=== PATIENT | female | born 1945 | race Caucasian/White ===

== ENCOUNTER 2020-03-01 09:02 | Observation (INO) ==
--- NOTE | 2019-12-23 15:32 | PAT Medication Instructions ---
Medication Instructions Date of Service December 23, 2019 Home Medications alendronate [Fosamax] 70 mg PO WK anastrozole 1 mg PO QAM aspirin 81 mg PO QAM biotin 5 mg PO QAM calcium carbonate-vitamin D3 [Calcium + D] 1 tab PO BID celecoxib [Celebrex] 100 mg PO BID cholecalciferol (vitamin D3) [Vitamin D3] 50 mcg PO QAM escitalopram oxalate 20 mg PO HS esomeprazole magnesium [Nexium] 20 mg PO QAM omega 0-yhq-cnn-fish oil [Fish Oil] 1 cap PO QAM simvastatin 40 mg PO HS Continue as directed alendronate [Fosamax] 70 mg PO WK ASK your surgeon for instructions Celecoxib [Celebrex] 100 mg PO BID ASK your prescriber and surgeon anastrozole 1 mg PO QAM STOP taking 2 weeks before surgery (or as soon as possible if surgery is within 2 weeks) omega 5-ufj-uhn-fish oil [Fish Oil] 1 cap PO QAM DO NOT take the morning of surgery biotin 5 mg PO QAM calcium carbonate-vitamin D3 [Calcium + D] 1 tab PO BID cholecalciferol (vitamin D3) [Vitamin D3] 50 mcg PO QAM Take morning of surgery With a small sip of water, OTHERWISE NOTHING TO EAT OR DRINK AFTER MIDNIGHT: aspirin 81 mg PO QAM esomeprazole magnesium [Nexium] 20 mg PO QAM Take evening before surgery calcium carbonate-vitamin D3 [Calcium + D] 1 tab PO BID escitalopram oxalate 20 mg PO HS simvastatin 40 mg PO HS Other Notes If you have any questions please call us at [phone] or [phone] or [phone] or [phone]
--- NOTE | 2019-12-24 09:45 | History & Physical Report ---
Date of Service December 24, 2019 date of surgery: 01/20/20 procedure: Left Total Knee Arthroplasty Assessment & Plan (1) Arthritis of knee, left: Further care discussed with Ebonie, at this point in time has failed conservative measures including previous knee scope, Visco injection, PO NSAIDs and Tylenol without relief, she would like to proceed with a left total knee replacement. Plan on discharge will be home with home health physical therapy. DVT prophalaxis with TEDs, SCDs and will also place on Lovenox x 2 weeks postop. Patient will have follow up appointment in our office two weeks post op for staple/suture removal and re-evaluation. Patient otherwise has no other question s or concerns. History of Present Illness Chief Complaint: left knee pain Primary Care Provider: Jordyn Cao Ebonie is a 74 year old female who complains of left knee pain, presents for pre-op evaluation prior to a left total knee replacement by dr Bennett at [facility]. she complains of pain, decreased range of motion, and stiffness in the left knee. she states that the symptoms have been chronic and non-traumatic. Currently the patient states that the symptoms are moderate-severe. The pain is described as aching, sharp and throbbing. The symptoms occur continuously. The symptoms are aggravated by ascending stairs, daily activities, first steps while awake walking. Prior NSAIDs include Ibuprofen and Aleve, prior pain medications include Tylenol. she has been treated with previous visco injections in the past without much relief. She underwent Left knee arthroscopic partial medial meniscectomy, partial lateral meniscectomy chondroplasty, medial femoral condyle chondroplasty, lateral femoral condyle chondroplasty patellofemoral joint in May without any improvement. Allergies Allergy/AdvReac Type Severity Reaction Status Date / Time aspirin AdvReac Mild DUODENAL Verified 12/18/19 11:40 ULCER Home Medications Home Medications Medication Instructions Recorded Confirmed Type alendronate [Fosamax] 70 mg PO WK 12/18/19 12/18/19 History anastrozole 1 mg PO QAM 12/18/19 12/18/19 History aspirin 81 mg PO QAM 12/18/19 12/18/19 History biotin 5 mg PO QAM 12/18/19 12/18/19 History calcium carbonate-vitamin D3 1 tab PO BID 12/18/19 12/18/19 History [Calcium + D] celecoxib [Celebrex] 100 mg PO BID 12/18/19 12/18/19 History cholecalciferol (vitamin D3) 50 mcg PO QAM 12/18/19 12/18/19 History [Vitamin D3] escitalopram oxalate 20 mg PO HS 12/18/19 12/18/19 History esomeprazole magnesium [Nexium] 20 mg PO QAM 12/18/19 12/18/19 History omega 7-amz-qsc-fish oil [Fish Oil] 1 cap PO QAM 12/18/19 12/18/19 History simvastatin 40 mg PO HS 12/18/19 12/18/19 History Past Med/Surg History Medical History Depression GERD (gastroesophageal reflux disease) Hiatal hernia Hx of breast cancer RIGHT BREAST, HAD LUMPECTOMY AND RADIATION 3 YEARS AGO Hx of duodenal ulcer Hyperlipidemia Osteoarthritis Sleep apnea CPAP Surgical History History of arthroscopy of left shoulder History of left cataract surgery PLANNED 01/04/2020 History of lumpectomy of right breast Hx laparoscopic cholecystectomy Hx of arthroscopy of left knee Hx of arthroscopy of right knee Hx of section X 2 Hx of colonoscopy Hx of right cataract extraction Hx of tonsillectomy Hx of tubal ligation Social History Smoking Status: Never smoker Second Hand Exposure: No; Do You Dip or Chew Tobacco: No; Tobacco Cessation Education Requested by Patient: No Hx Alcohol Use: Yes Hx Substance Use: No Preferred Language: Sinhala Communication Ability: Effective Soft Shoe Dancer Required: No Beliefs That Will Affect Care: None Current Living Situation: Spouse Other Information That Helps Us Care for You: No Feels Safe at Home: Yes Safety Concerns: Feels Safe At This Time Review of Systems Review of Systems: All systems reviewed & are unremarkable except as noted in HPI & below Constitutional: no fever, no chills and no sweats Respiratory: no cough and no dyspnea Cardiovascular: no chest pain, no dyspnea and no orthopnea Gastrointestinal: no abdominal pain, no nausea and no vomiting Musculoskeletal: as per Subjective / HPI Physical Exam Physical Exam: Ht: 5ft 6in Wt: 81.65kg BP: 114/60 Constitutional: WD/WN, vitals as above no acute distress Respiratory: normal respiratory effort, lungs clear to auscultation no respiratory distress, no labored breathing and does not use accessory muscles Cardiovascular: RRR, no murmur, no edema Gastrointestinal (Abdomen): normal bowel sounds, soft, nontender, no hepatosplenomegaly Musculoskeletal: Knee: + knee abnormal to inspection (LEFT KNEE- ), + effusion (+1 effusion), + surgical incision (well healed portals), + limited ROM of knee (ROM 0/3/110), + knee ROM with crepitation, + joint line tenderness (medial joint line) and + Kerry's sign positive; no deformity, no skin erythema, no ecchymosis, no valgus laxity, no varus laxity, anterior drawer test negative, Sanjana's sign negative and pivot shift test negative Results & Data Results & Data ([facility]) Diagnostic Findings Left Knee X-ray from November 2019 confirms degenerative changes to the left knee, Tricompartmentally, there is joint space narrowing, osteophyte formation and subchondral sclerosis. no acute bony pathology noted.
--- NOTE | 2019-12-25 13:14 | Anesthesiology Consultation ---
Date of Service December 25, 2019 Assessment & Plan (1) Encounter for pre-operative examination: - Per assessment on 12/24: Travel screen- Lives in [facility]. No known COVID-19 positive contacts or current COVID-19 related symptoms. Surgeon arranging preop COVID testing (01/13; [facility]). Awaiting results. - Right cataracts extraction scheduled for 01/04/2020 - ASA instructions per surgeon/prescriber - RUE limb restriction s/p lumpectomy Chart Review Chart Review: Acceptable Risk for Surgery (pending surgeon-ordered PCP clearance) and Patient seen in Pre Admission Testing Teaching & Discussion Pre-Anesthesia Teaching/Discussion Notes: Instructed NPO after midnight before surgery,except medications with 15 cc of water. Medication instructions provided according to the PAT guidelines. History Surgery Operation Date: 01/20/20 08:20 Proposed Procedures p Left Total Knee Arthroplasty - Rudy Bennett DO Height/Weight Height: 5 ft 6 in Weight: 80 kg Allergies Allergy/AdvReac Type Severity Reaction Status Date / Time aspirin AdvReac Mild duodenal Verified 12/25/19 14:07 ulcer (see comments) Medications Home Medications Medication Instructions Recorded Confirmed Last Taken alendronate [Fosamax] 70 mg PO WK 12/18/19 12/18/19 Unknown anastrozole 1 mg PO QAM 12/18/19 12/18/19 Unknown aspirin 81 mg PO QAM 12/18/19 12/18/19 Unknown biotin 5 mg PO QAM 12/18/19 12/18/19 Unknown calcium carbonate-vitamin D3 1 tab PO BID 12/18/19 12/18/19 Unknown [Calcium + D] celecoxib [Celebrex] 100 mg PO BID 12/18/19 12/18/19 Unknown cholecalciferol (vitamin D3) 50 mcg PO QAM 12/18/19 12/18/19 Unknown [Vitamin D3] escitalopram oxalate 20 mg PO HS 12/18/19 12/18/19 Unknown esomeprazole magnesium [Nexium] 20 mg PO QAM 12/18/19 12/18/19 Unknown omega 0-sro-jlr-fish oil [Fish Oil] 1 cap PO QAM 12/18/19 12/18/19 Unknown simvastatin 40 mg PO HS 12/18/19 12/18/19 Unknown Past Medical History Medical History (Updated 12/25/19 @ 13:18 by Roz Hillman) Depression GERD (gastroesophageal reflux disease) Hiatal hernia Hx of breast cancer right s/p lumpectomy/radiation approximately 2017 Hx of duodenal ulcer Hyperlipidemia Osteoarthritis Sleep apnea CPAP Exercise / Class Metabolic Activity II 4-5 Yardwork/Stairs/Walk up hill Past Surgical History Surgical History (Updated 12/25/19 @ 13:18 by Roz Hillman) History of arthroscopy of left shoulder History of lumpectomy of right breast Hx laparoscopic cholecystectomy Hx of arthroscopy of left knee Hx of arthroscopy of right knee Hx of section X 2 Hx of colonoscopy Hx of right cataract extraction Hx of tonsillectomy Hx of tubal ligation Social History Smoking Status: Never smoker Do You Dip or Chew Tobacco: No Hx Alcohol Use: Yes alcohol intake frequency: holidays/special occasions only Hx Substance Use: No substance use type: does not use Review of Systems Patient denies chest pain, shortness of breath, dyspnea on exertion, joint pain, reflux, cough, wheezing, palpitations. Physical Exam Vital Signs VITALS BP 117/70 P 62 TEMP 97.9 SP02 95%RA RESP 16 PHYSICAL Full neck and c-spine range of motion. Full TMJ range of motion. TMD 3 finger breaths Mallampati Score 3 Dentition: intact, +crowns (several all over) Lungs: clear throughout to auscultation Cardiac: regular rate and rhythm, no murmurs noted Spine: normal Carotid arteries: negative bruit Extremities: no edema Testing Laboratory Results 12/25/19 14:15 12/25/19 14:15 PT 10.8 Seconds (9.0-12.0) 12/25/19 14:15 INR 1.0 (0.9-1.1) 12/25/19 14:15 APTT 26.8 Seconds (21.0-31.0) 12/25/19 14:15 Hemoglobin A1c 5.8 % (4.5-5.6) H 12/25/19 14:15 Urine Color Yellow 12/25/19 14:15 Urine Appearance Clear (Clear) 12/25/19 14:15 Urine pH 5.5 (4.5-7.5) 12/25/19 14:15 Ur Specific [place] 1.008 (1.000-1.030) 12/25/19 14:15 Urine Protein Negative (Negative) 12/25/19 14:15 Urine Glucose (UA) Negative (Negative) 12/25/19 14:15 Urine Ketones Negative (Negative) 12/25/19 14:15 Urine Nitrite Negative (Negative) 12/25/19 14:15 Ur Leukocyte Esterase Trace (Negative) H 12/25/19 14:15 Urine WBC (Auto) 1-5 /hpf (0-5) 12/25/19 14:15 Urine RBC (Auto) 0-4 /hpf (0-4) 12/25/19 14:15 U Hyaline Cast (Auto) 0 /lpf (0-5) 12/25/19 14:15 U Epithel Cells (Auto) 0-5 /lpf (0-5) 12/25/19 14:15 Urine Bacteria (Auto) Negative (Negative) 12/25/19 14:15 Blood Type A Positive 12/25/19 14:15 Antibody Screen NEGATIVE 12/25/19 14:15 Electrocardiogram Date: 12/25/19 SB at 56bpm. Chest X-Ray Date: 12/25/19 FINDINGS: PA and lateral chest radiographs are obtained. No prior studies are available for comparison at the time of dictation. The heart is top normal for projection noting atherosclerotic calcification of the thoracic aorta. The med iastinal contour is within normal limits. The lungs and pleural spaces are clear. There is no pneumothorax. The skeletal structures are osteopenic. The bony thorax appears intact. Degenerative change is noted in the thoracic spine. IMPRESSION: No active disease in the chest.
--- NOTE | 2019-12-25 17:54 | Electrocardiogram Report ---
Test Reason : Blood Pressure : / mmHG Vent. Rate : 056 BPM Atrial Rate : 056 BPM P-R Int : 166 ms QRS Dur : 076 ms QT Int : 436 ms P-R-T Axes : 069 024 041 degrees QTc Int : 420 ms Sinus bradycardia Otherwise normal ECG No previous ECGs available Confirmed by Guevara Hu ([id number]) on 12/25/2019 5:53:50 PM Referred By: Rudy Bennett Confirmed By:Korey Hu
--- NOTE | 2020-02-03 12:25 | History & Physical Report ---
Date of Service February 03, 2020 date of surgery: 03/01/20 procedure: Left Total Knee Arthroplasty Assessment & Plan (1) Arthritis of knee, left: Further care discussed with Ebonie, at this point in time has failed conservative measures including previous knee scope, Visco injection, PO NSAIDs and Tylenol without relief, she would like to proceed with a left total knee replacement. Plan on discharge will be home with home health physical therapy. DVT prophalaxis with TEDs, SCDs and will also place on Lovenox x 2 weeks postop. Patient will have follow up appointment in our office two weeks post op for staple/suture removal and re-evaluation. Patient otherwise has no other questions or concerns. History of Present Illness Chief Complaint: left knee pain Primary Care Provider: Jordyn Cao Ebonie is a 74 year old female who complains of left knee pain, presents for pre-op evaluation prior to a left total knee replacement by dr Bennett at [facility]. she complains of pain, decreased range of motion, and stiffness in the left knee. she states that the symptoms have been chronic and non-traumatic. Currently the patient states that the symptoms are moderate-severe. The pain is described as aching, sharp and throbbing. The symptoms occur continuously. The symptoms are aggravated by ascending stairs, daily activities, first steps while awake walking. Prior NSAIDs include Ibuprofen and Aleve, prior pain medications include Tylenol. she has been treated with previous visco injections in the past without much relief. She underwent Left knee arthroscopic partial medial meniscectomy, partial lateral meniscectomy chondroplasty, medial femoral condyle chondroplasty, lateral femoral condyle chondroplasty patellofemoral joint in May without any improvement. Allergies Allergy/AdvReac Type Severity Reaction Status Date / Time aspirin AdvReac Mild duodenal Verified 12/25/19 14:07 ulcer (see comments) Home Medications Home Medications Medication Instructions Recorded Confirmed Type alendronate [Fosamax] 70 mg PO WK 12/18/19 12/18/19 History anastrozole 1 mg PO QAM 12/18/19 12/18/19 History aspirin 81 mg PO QAM 12/18/19 12/18/19 History biotin 5 mg PO QAM 12/18/19 12/18/19 History calcium carbonate-vitamin D3 1 tab PO BID 12/18/19 12/18/19 History [Calcium + D] celecoxib [Celebrex] 100 mg PO BID 12/18/19 12/18/19 History cholecalciferol (vitamin D3) 50 mcg PO QAM 12/18/19 12/18/19 History [Vitamin D3] escitalopram oxalate 20 mg PO HS 12/18/19 12/18/19 History esomeprazole magnesium [Nexium] 20 mg PO QAM 12/18/19 12/18/19 History omega 1-cvw-yre-fish oil [Fish Oil] 1 cap PO QAM 12/18/19 12/18/19 History simvastatin 40 mg PO HS 12/18/19 12/18/19 History Past Med/Surg History Medical History Depression GERD (gastroesophageal reflux disease) Hiatal hernia Hx of breast cancer right s/p lumpectomy/radiation approximately 2017 Hx of duodenal ulcer Hyperlipidemia Osteoarthritis Sleep apnea CPAP Surgical History History of arthroscopy of left shoulder History of lumpectomy of right breast Hx laparoscopic cholecystectomy Hx of arthroscopy of left knee Hx of arthroscopy of right knee Hx of section X 2 Hx of colonoscopy Hx of right cataract extraction Hx of tonsillectomy Hx of tubal ligation Social History Smoking Status: Never smoker Second Hand Exposure: No; Hx Alcohol Use: Yes Hx Substance Use: No Preferred Language: Albanian Communication Ability: Effective Order To Delivery Supervisor Required: No Beliefs That Will Affect Care: None Current Living Situation: Spouse Feels Safe at Home: Yes Assistive Devices: Glasses and Hearing Aid - Bilateral Review of Systems Constitutional: as per Subjective / HPI; no fever and no chills Respiratory: no cough and no dyspnea Cardiovascular: no chest pain and no dyspnea Gastrointestinal: no abdominal pain, no nausea and no vomiting Musculoskeletal: as per Subjective / HPI Physical Exam Physical Exam: Ht: 5ft 6in Wt: 81.65kg BP: 114/60 Constitutional: WD/WN, vitals as above no acute distress Respiratory: normal respiratory effort, lungs clear to auscultation no respiratory distress, no labored breathing and does not use accessory muscles Cardiovascular: RRR, no murmur, no edema Gastrointestinal (Abdomen): normal bowel sounds, soft, nontender, no hepatosplenomegaly Musculoskeletal: Knee: + knee abnormal to inspection (LEFT KNEE- ), + effusion (+1 effusion), + surgical incision (well healed portals), + limited ROM of knee (ROM 0/3/110), + knee ROM with crepitation, + joint line tenderness (medial joint line) and + Kerry's sign positive; no deformity, no skin erythema, no ecchymosis, no valgus laxity, no varus laxity, anterior drawer test negative, Sanjana's sign negative and pivot shift test negative Results & Data Results & Data ([facility]) Laboratory Results Laboratory Results WBC Cancelled 12/25/19 14:15 RBC Cancelled 12/25/19 14:15 Hgb Cancelled 12/25/19 14:15 Hct Cancelled 12/25/19 14:15 MCV Cancelled 12/25/19 14:15 MCH Cancelled 12/25/19 14:15 MCHC Cancelled 12/25/19 14:15 RDW Std Deviation Cancelled 12/25/19 14:15 RDW Coeff of Tee Cancelled 12/25/19 14:15 Plt Count Cancelled 12/25/19 14:15 MPV Cancelled 12/25/19 14:15 Immature Gran % (Auto) Cancelled 12/25/19 14:15 Neut % (Auto) Cancelled 12/25/19 14:15 Lymph % (Auto) Cancelled 12/25/19 14:15 Williams % (Auto) Cancelled 12/25/19 14:15 Eos % (Auto) Cancelled 12/25/19 14:15 Baso % (Auto) Cancelled 12/25/19 14:15 Neut # (Auto) Cancelled 12/25/19 14:15 Lymph # (Auto) Cancelled 12/25/19 14:15 Williams # (Auto) Cancelled 12/25/19 14:15 Eos # (Auto) Cancelled 12/25/19 14:15 Baso # (Auto) Cancelled 12/25/19 14:15 Immature Gran # (Auto) Cancelled 12/25/19 14:15 Absolute Nucleated RBC Cancelled 12/25/19 14:15 Nucleated RBC % (auto) Cancelled 12/25/19 14:15 Neutrophils % (Manual) Cancelled 12/25/19 14:15 Band Neutrophils % Cancelled 12/25/19 14:15 Lymphocytes % (Manual) Cancelled 12/25/19 14:15 Prolymphocyte % Cancelled 12/25/19 14:15 Reactive Lymphs % (Man) Cancelled 12/25/19 14:15 Monocytes % (Manual) Cancelled 12/25/19 14:15 Eosinophils % (Manual) Cancelled 12/25/19 14:15 Basophils % (Manual) Cancelled 12/25/19 14:15 Metamyelocytes % (Man) Cancelled 12/25/19 14:15 Myelocytes % (Man) Cancelled 12/25/19 14:15 Promyelocytes % (Man) Cancelled 12/25/19 14:15 Blast Cells % (Manual) Cancelled 12/25/19 14:15 Plasma Cell % (Manual) Cancelled 12/25/19 14:15 Other Cells % Cancelled 12/25/19 14:15 Nucleated RBC % Cancelled 12/25/19 14:15 Neutrophils # (Manual) Cancelled 12/25/19 14:15 Band Neutrophils # Cancelled 12/25/19 14:15 Total Absolute Neuts Cancelled 12/25/19 14:15 Lymphocytes # (Manual) Cancelled 12/25/19 14:15 Prolymphocyte # Cancelled 12/25/19 14:15 Reactive Lymphs # Cancelled 12/25/19 14:15 Total Abs Lymphocytes Cancelled 12/25/19 14:15 Monocytes # (Manual) Cancelled 12/25/19 14:15 Eosinophils # (Manual) Cancelled 12/25/19 14:15 Basophils # (Manual) Cancelled 12/25/19 14:15 Metamyelocytes # (Man) Cancelled 12/25/19 14:15 Myelocytes # (Manual) Cancelled 12/25/19 14:15 Promyelocytes # (Man) Cancelled 12/25/19 14:15 Blast Cells # (Man) Cancelled 12/25/19 14:15 Plasma Cell # (Manual) Cancelled 12/25/19 14:15 Other Cells # Cancelled 12/25/19 14:15 Nucleated RBCs # (Man) Cancelled 12/25/19 14:15 Hypersegmented Neuts Cancelled 12/25/19 14:15 Hyposegmented Neuts Cancelled 12/25/19 14:15 Hypogranular Neuts Cancelled 12/25/19 14:15 Large Granular Lymphs Cancelled 12/25/19 14:15 # Lrg Granular Lymphs Cancelled 12/25/19 14:15 Hairy Cells Cancelled 12/25/19 14:15 Smudge Cells Cancelled 12/25/19 14:15 Toxic Granulation Cancelled 12/25/19 14:15 Toxic Vacuolation Cancelled 12/25/19 14:15 Dohle Bodies Cancelled 12/25/19 14:15 Rafael Rods Cancelled 12/25/19 14:15 Platelet Estimate Cancelled 12/25/19 14:15 Hypogranular Platelets Cancelled 12/25/19 14:15 Clumped Platelets Cancelled 12/25/19 14:15 Giant Platelets Cancelled 12/25/19 14:15 Platelet Satelliting Cancelled 12/25/19 14:15 RBC Morphology Cancelled 12/25/19 14:15 Polychromasia Cancelled 12/25/19 14:15 Hypochromasia Cancelled 12/25/19 14:15 Poikilocytosis Cancelled 12/25/19 14:15 Basophilic Stippling Cancelled 12/25/19 14:15 Anisocytosis Cancelled 12/25/19 14:15 Microcytosis Cancelled 12/25/19 14:15 Macrocytosis Cancelled 12/25/19 14:15 Spherocytes Cancelled 12/25/19 14:15 Pappenheimer Bodies Cancelled 12/25/19 14:15 Sickle Cells Cancelled 12/25/19 14:15 Target Cells Cancelled 12/25/19 14:15 Tear Drop Cells Cancelled 12/25/19 14:15 Ovalocytes Cancelled 12/25/19 14:15 Stomatocytes Cancelled 12/25/19 14:15 Deleon-Lyle Bodies Cancelled 12/25/19 14:15 Echinocytes Cancelled 12/25/19 14:15 Acanthocytes (Spur) Cancelled 12/25/19 14:15 Rouleaux Cancelled 12/25/19 14:15 RBC Agglutinates Cancelled 12/25/19 14:15 Schistocytes Cancelled 12/25/19 14:15 RBC Morph Comment Cancelled 12/25/19 14:15 Sezary Cell Cancelled 12/25/19 14:15 PT Cancelled 12/25/19 14:15 INR Cancelled 12/25/19 14:15 APTT Cancelled 12/25/19 14:15 PTT Ratio Cancelled 12/25/19 14:15 Sodium Cancelled 12/25/19 14:15 Potassium Cancelled 12/25/19 14:15 Chloride Cancelled 12/25/19 14:15 Carbon Dioxide Cancelled 12/25/19 14:15 Anion Gap Cancelled 12/25/19 14:15 BUN Cancelled 12/25/19 14:15 Creatinine Cancelled 12/25/19 14:15 Est Cr Clr Drug Dosing Cancelled 12/25/19 14:15 Est GFR ( Amer) Cancelled 12/25/19 14:15 Est GFR (Non-Af Amer) Cancelled 12/25/19 14:15 BUN/Creatinine Ratio Cancelled 12/25/19 14:15 Glucose Cancelled 12/25/19 14:15 Estimat Average Glucose Cancelled 12/25/19 14:15 Hemoglobin A1c Cancelled 12/25/19 14:15 Calcium Cancelled 12/25/19 14:15 Albumin Cancelled 12/25/19 14:15 Urine Color Cancelled 12/25/19 14:15 Urine Appearance Cancelled 12/25/19 14:15 Urine pH Cancelled 12/25/19 14:15 Ur Specific [place] Cancelled 12/25/19 14:15 Urine Protein Cancelled 12/25/19 14:15 Urine Glucose (UA) Cancelled 12/25/19 14:15 Urine Ketones Cancelled 12/25/19 14:15 Urine Blood Cancelled 12/25/19 14:15 Urine Nitrite Cancelled 12/25/19 14:15 Urine Bilirubin Cancelled 12/25/19 14:15 Urine Urobilinogen Cancelled 12/25/19 14:15 Ur Leukocyte Esterase Cancelled 12/25/19 14:15 Urine WBC (Auto) Cancelled 12/25/19 14:15 Urine RBC (Auto) Cancelled 12/25/19 14:15 U Hyaline Cast (Auto) Cancelled 12/25/19 14:15 U Epithel Cells (Auto) Cancelled 12/25/19 14:15 Urine Bacteria (Auto) Cancelled 12/25/19 14:15 Ur Renal Epithelial Cell Cancelled 12/25/19 14:15 Urine Crystals Cancelled 12/25/19 14:15 Calcium Oxalate Crystal Cancelled 12/25/19 14:15 Uric Acid Crystals Cancelled 12/25/19 14:15 Triple Phos Crystals Cancelled 12/25/19 14:15 Other Crystals Cancelled 12/25/19 14:15 Amorphous Sediment Cancelled 12/25/19 14:15 Granular Casts Cancelled 12/25/19 14:15 Waxy Casts Cancelled 12/25/19 14:15 RBC Casts Cancelled 12/25/19 14:15 WBC Casts Cancelled 12/25/19 14:15 Other Casts Cancelled 12/25/19 14:15 Urine Mucus Cancelled 12/25/19 14:15 Urine Other Cancelled 12/25/19 14:15 Urine Trichomonas Cancelled 12/25/19 14:15 Urine Yeast Cancelled 12/25/19 14:15 Urine Sperm Cancelled 12/25/19 14:15 Ur Oval Fat Bodies Cancelled 12/25/19 14:15 Blood Type Cancelled 12/25/19 14:15 Antibody Screen Cancelled 12/25/19 14:15 Diagnostic Findings Left Knee X-ray from November 2019 confirms degenerative changes to the left knee, Tricompartmentally, there is joint space narrowing, osteophyte formation and subchondral sclerosis. no acute bony pathology noted.
[~2020-03-01 09:02] MED LIST: ACETAMINOPHEN 500 MG TAB PO SCH; BUPIVACAINE 0.5 % 5 MG/1 ML PF 10ML VIAL ONE; CeleBREX 200 MG CAP PO SCH; EPINEPHrine INJ 1 MG/ML AMP ONE; FAMOTIDINE 20 MG TAB PO SCH; GABAPENTIN 300 MG CAP PO SCH; LR 500ML BOLUS, THEN 15ML/HR IV SCH; METOCLOPRAMIDE HCL 10 MG TABLET PO SCH; ROPIVACAINE 0.5% 5 MG/ML 30 ML VIAL ONE; ROPIVACAINE 0.5% HCL/PF 150 MG, BUPIVACAINE 0.5% MPF 30 ML, EPINEPHrine 30MG/30ML (OR U... INSTIL SCH; TRANEXAMIC ACID 1,000 MG **IV Intra-op IV SCH; TRANEXAMIC ACID 1,000 MG **IV Pre-op IV SCH; ceFAZolin 2000MG 2,000 MG/15 ML SYR IV SCH; dexAMETHasone 4 MG TAB PO SCH
[2020-03-01] MEDS ORDERED: MIDAZOLAM HCL 1 MG/ML 2ML VIAL ONE (11:20)
[2020-03-01] MEDS ORDERED: fentaNYL citrate 100 MCG/2 ML VIAL ONE (11:20)
[2020-03-01] MEDS ORDERED: PROPOFOL IV EMULSION 10 MG/ML 20 ML VIAL IV ONE (11:20)
--- NOTE | 2020-03-01 11:45 | History & Physical Bridge Note ---
Date of Service March 01, 2020 History & Physical Bridge Note I have examined the patient, reviewed the History & Physical and in the interval since the performance of the History & Physical I have noted the following changes of clinical significance: no changes noted
[2020-03-01] MEDS ORDERED: BACITRACIN INJ 50,000 UNIT VIAL ONE (11:58)
[2020-03-01] MEDS ORDERED: ORTHO JOINT ANESTHETIC ONE (11:58)
[2020-03-01] MEDS ORDERED: ePHEDrine sulfate 50 MG/ML AMP IV PRN (13:45)
[2020-03-01] MEDS ORDERED: ATROPINE SULFATE 0.1 MG/ML 10ML SYR IV PRN (13:45)
--- NOTE | 2020-03-01 13:59 | Operative Report ---
Post Operative Report Pre & Post Diagnosis Operation Date: 01/20/20 12:15 <No data on this case meets the specified criteria> Operation Date: 03/01/20 11:40 Pre-Op Diagnosis: Left Knee Osteoarthritis Post-Op Diagnosis: Left Knee Osteoarthritis I identified the patient and participated in the time-out.: Yes Procedure Operation Date: 01/20/20 12:15 <No data on this case meets the specified criteria> Operation Date: 03/01/20 11:40 Actual Procedures p Left Total Knee Arthroplasty, Cemented(Left) utilizing [employer] journey to nonblock total knee arthroplasty size 5 femur 4 tibia 9 polyethylene 32 oval patella- Rudy Bennett DO Surgeon Rudy Bennett DO Faculty Head [employer] CISNEROS Estimated Blood Loss 5 Findings Consistent with Post-Op Diagnosis Patient presents with severe end-stage tricompartmental degenerative joint disease left knee with varus alignment 7 degree flexion contracture eburnated [id number] marginal osteophytes moderate to large effusion subchondral cystic and sclerotic changes Specimens Bone and cartilage Drains Medium bore Hemovac Anesthesia Type MAC Spinal Regional Complications none Disposition Accompanied Patient To Recovery: No Disposition: Recovery Room Indications Patient presents for left total knee arthroplasty for failed attempted conservative management and physical therapy anti-inflammatories relative rest activity modification corticosteroid injection Visco supplementation bracing above intraoperative findings were noted. Description of Procedure After proper prepping and draping of the left lower extremity anterior midline incision was made over the region of the extensor extensor mechanism after meticulous hemostasis was obtained and maintained in subcutaneous tissues a medial parapatellar incision was made The patella was subluxed lateralward the medial lateral gutter were cleaned from any hypertrophic synovitis and scar tissue of the distal femoral block was placed and the distal femoral osteotomy cut was made subsequently the chamfers anterior and posterior osteotomy cuts were made utilizing the 4-in-1 block the tibia was subsequently subluxed anteriorward medial and ateral meniscal remnants were excised in their entirety remnants of the anterior and posterior cruciate ligaments were excised in their entirety excellent exposure of the proximal tibia was obtained the tibial osteotomy guide was placed on the proximal tibial osteotomy cut was made once again the knee was irrigated with copious amounts of sterile saline solution the patella was subsequently everted lateralward thickened scar tissue around the patella was removed the patella was subsequently cut utilizing a freehand technique and was drilled prepared for final preparation and placement of patella socially flexion-extension gaps were checked and the equal and symmetric trials were placed to the appropriate femoral and tibial trials with poly-spacer being placed for equal flexion and extension gaps and full range of motion including extension to 0 and flexion to 140 the trial components after having been taken to recovery range of motion was subsequently removed meticulous hemostasis was obtained and maintained subsequently a knee block injection of joint cocktail including ropivacaine 0.5% 150 mg. Bupivacaine 0.5% epinephrine 1-200,030 mL's toradol 30 mg dexamethasone 4 mg ketamine 10 mg clonidine 100 micrograms normal saline solution 30 mg was infiltrated into the soft tissues of the posterior knee medial lateral gutters and periosteal synovium special attention was paid to protect neurovascular structures at all times subsequently trial components having been removed the knee was irrigated with sterile saline solution. debris was removed the proximal tibia was subsequently prepared and was made ready for the placement of the tibial component tibial component was also cemented and tamped into position the femoral component was subsequently placed and cemented in the position the patellar component was subsequently cemented in position because hemostasis once again obtained and maintained wound having been thoroughly irrigated with debridement and debridement lavage was performed as well as a medial parapatellar incision closed with #1 Vicryl in interrupted fashion subcutaneous was closed with #2 Vicryl skin was closed with skin clips. PA-C was necessary for prepping and drapping as well as wound closure of deep fascia Sub cutaneous tissue and skin and was necessary for the case. A sterile compressive dressing was placed patient was taken to recovery in stable condition of report dictated by Donald I attest to the content of the Intraoperative Record and any orders documented therein. Any exceptions are noted below. I attest to the content of the Intraoperative Record and any orders documented therein. Any exceptions are noted below.
--- NOTE | 2020-03-01 15:04 | Anesthesiology Progress Note ---
Date of Service March 01, 2020 Anesthesia Post Procedure Vital Signs Vital Signs: Temp Pulse Resp BP Pulse Ox 03/01/20 14:56 79 15 111/63 97 03/01/20 14:45 82 15 127/69 97 03/01/20 14:37 37.1 C 86 16 135/63 98 03/01/20 12:21 37.1 C 60 18 124/72 96 03/01/20 11:24 36.8 C 61 20 113/84 96 Pain Intensity Left Knee: Pain Intensity: 0 Transfer of Care Handoff Completed per policy Notes Mental Status: alert / awake / arousable Patient Amnestic to Procedure: Yes Nausea / Vomiting: adequately controlled Pain: adequately controlled Airway Patency, RR, SpO2: stable & adequate BP & HR: stable & adequate Hydration State: stable & adequate Neuraxial Anesthesia: was administered and sensory block is resolving Anesthetic Complications: no major complications apparent
--- NOTE | 2020-03-01 15:18 | XRay Report ---
LEFT KNEE 2 VIEWS History: Left total knee arthroplasty. Degenerative arthritis. Postop. FINDINGS: The patient is status post a left total knee arthroplasty. The hardware is intact. No fract ure or dislocation. Surgical drains are in place. IMPRESSION: Left total knee arthroplasty. No evidence for hardware complication. ACT 112: Negative or not required by law. Electronically signed by: Paul Amaral M.D. 03/01/2020 3:17 PM
[2020-03-01] MEDS ORDERED: bisacodyL 10 MG SUPP PR PRN (15:36)
[2020-03-01] MEDS ORDERED: diphenhydrAMINE Capsule 25 MG CAP PO PRN (15:36)
[2020-03-01] MEDS ORDERED: oxyCODONE HCL IR 5 MG TAB (IMMEDIATE RELEASE) PO PRN (15:36)
[2020-03-01] MEDS ORDERED: NALOXONE HCL 0.4 MG/1 ML VIAL/CARP IV PRN (15:36)
[2020-03-01] MEDS ORDERED: ONDANSETRON INJ 2 MG/ML 2 ML VIAL IV PRN (15:36)
[2020-03-01] MEDS ORDERED: METOCLOPRAMIDE HCL INJ 5 MG/ML 2 ML VIAL IV PRN (15:36)
[2020-03-01] MEDS ORDERED: HYDROmorphone INJ 1 MG/ML SYRINGE IV PRN (15:36)
[2020-03-01] MEDS ORDERED: MAGNESIUM HYDROXIDE SUSP 30 ML UDC PO PRN (15:36)
[2020-03-01] MEDS: KETOROLAC TROMETHAMINE 15 MG/ML VIAL IV SCH ×2 (17:54→21:09)
[2020-03-01] MEDS: SODIUM CHLORIDE 0.9% 1000ML 1,000 ML IV SCH ×2 (17:54→21:01)
[2020-03-01] MEDS ORDERED: ESCITALOPRAM OXALATE 20 MG TAB PO SCH (21:00)
[2020-03-01] MEDS ORDERED: SIMVASTATIN 40 MG TAB PO SCH (21:00)
[2020-03-01] MEDS ORDERED: SENNA 8.6 MG TAB PO SCH (21:00)
[2020-03-01] MEDS: ceFAZolin 1000MG 1,000 MG/7.5 ML SYR IV SCH (21:09)
[2020-03-01] MEDS: DOCUSATE SODIUM 100 MG CAP PO SCH (21:09)
[2020-03-01] MEDS: ASPIRIN 81 MG ECTAB PO SCH (21:09)
[2020-03-01] MEDS: CALCIUM 600MG + VIT D 400 IU TAB PO SCH (21:09)
[2020-03-01] MEDS: ACETAMINOPHEN 500 MG TAB PO SCH (21:10)
[2020-03-01] MEDS ORDERED: PNEUMOCOCCAL POLYSACCHARIDES 25 MCG/0.5 ML VIAL/SYR IM ONE (23:13)
[2020-03-01] MEDS ORDERED: PNEUMOCOCCAL ADMINISTRATION CHARGE ONE (23:13)
[2020-03-02] MEDS: KETOROLAC TROMETHAMINE 15 MG/ML VIAL IV SCH ×2 (04:58→09:48)
[2020-03-02] MEDS: ceFAZolin 1000MG 1,000 MG/7.5 ML SYR IV SCH (04:59)
[2020-03-02] MEDS: ACETAMINOPHEN 500 MG TAB PO SCH ×2 (05:00→14:33)
[2020-03-02 06:18] LABS: Hematocrit (blood only) 35.1 % (37-47); Hemoglobin 11.7 g/dL (12.0-16.0); Mean Corpuscular Hemoglobin 30.5 pg (25-34); Mean Corpuscular Hgb Conc 33.3 g/dL (32-36); Mean Corpuscular Volume 91.6 fL (80-100); Mean Platelet Volume 9.5 fL (7.4-10.4); Platelet Count 257 K/uL (130-400); RDW Coefficient of Variation 13.8 % (11.5-14.5); RDW Standard Deviation 45.7 fL (36.4-46.3); Red Blood Count 3.83 M/uL (4.2-5.4); White Blood Count 19.53 K/uL (4.8-10.8)
[2020-03-02 06:38] LABS: BUN Creatinine Ratio 18.9 (10-20); Calcium 8.8 mg/dl (8.5-10.1); Creatinine Clr Calc Pharmacy 45.4 ml/min; Est GFR (African American) 53.4; Potassium 3.9 mmol/L (3.5-5.1)
[2020-03-02] MEDS ORDERED: MULTIVITAMIN TAB PO SCH (09:00)
[2020-03-02] MEDS ORDERED: ANASTROZOLE 1 MG TAB PO SCH (09:00)
[2020-03-02] MEDS ORDERED: PANTOprazole 40 MG TAB PO SCH (09:00)
[2020-03-02] MEDS ORDERED: CHOLECALCIFEROL 1,000 UNITS 25 MCG TAB PO SCH (09:00)
[2020-03-02] MEDS ORDERED: POLYETHYLENE (MIRALAX) 17 GM PACK PO SCH (09:00)
--- NOTE | 2020-03-02 09:18 | Orthopedic Progress Note ---
Date of Service March 02, 2020 Assessment & Plan (1) History of total left knee replacement: POD #1 s/p Left TKA pt/ot dvt proph with BASIM/SCD/ASA plan for d/c home with HHPT after PT today Admission and Anticipated Discharge Date Admission Date: March 01, 2020 Subjective POD #1 s/p Left TKA Review of Systems Constitutional: no fever, no chills and no sweats Respiratory: no cough and no dyspnea Cardiovascular: no chest pain and no dyspnea Gastrointestinal: no abdominal pain, no nausea and no vomiting Physical Exam Physical Exam: Vital Signs Temp 36.6 C 03/02/20 07:50 Pulse 72 03/02/20 07:50 Resp 16 03/02/20 07:50 BP 120/54 L 03/02/20 07:50 Pulse Ox 91 03/02/20 07:50 Intake & Output 03/01/20 03/02/20 03/02/20 18:59 06:59 18:59 Intake Total 1650 / 4013.334 2363.334 / 4013.33 4 Output Total 55 / 475 420 / 475 250 / 250 Balance 1595 / 3538.334 1943.334 / 3538.33 4 -250 / -250 Weight 78 kg Intake: IV 900 / 2013.334 1113.334 / 2013.33 4 Lr 1,000 ml @ 15 mls/hr IV . 700 / 700 Q24H [facility] Rx#:[id number] Nss 1000ML 1,0 00 ml @ 100 mls/ 1113.334 / 1113.33 4 hr IV .Q10H [facility] Rx#:[id number] TRANEXAMIC ACI D / 0.7% NACL 1, 200 / 200 000 mg In 100 ml @ 600 mls/hr IV TODAY@0600 [facility] Rx#:[id number] IV Perioperative 750 / 750 Oral 1250 / 1250 Output: Urine 200 / 200 250 / 250 Estimated Blood Loss 5 / 5 Drain Output 50 / 270 220 / 270 Left Knee Hemo vac 50 / 270 220 / 270 Other: # Unmeasured Voi ds 1 Weight Measureme nt Method Standing Scale Constitutional: WD/WN, vitals as above no acute distress Musculoskeletal: Left Leg: NVDI, calf SNT, negative jovanny sign. DP palpable, able to wiggle toes/ankle movement without difficulty. dressing clean dry and intact. Results & Data ([facility]) Vital Signs (Past 12 Hours) Vital Signs Temp Pulse Resp BP Pulse Ox 03/02/20 07:50 36.6 C 72 16 120/54 L 91 03/02/20 03:18 36.9 C 67 16 146/79 H 94 03/01/20 22:55 36.8 C 70 16 112/64 97 Laboratory Results Laboratory Results WBC 19.53 K/uL (4.8-10.8) H 03/02/20 05:34 RBC 3.83 M/uL (4.2-5.4) L 03/02/20 05:34 Hgb 11.7 g/dL (12.0-16.0) L 03/02/20 05:34 Hct 35.1 % (37-47) L 03/02/20 05:34 MCV 91.6 fL (80-100) 03/02/20 05:34 MCH 30.5 pg (25-34) 03/02/20 05:34 MCHC 33.3 g/dL (32-36) 03/02/20 05:34 RDW Std Deviation 45.7 fL (36.4-46.3) 03/02/20 05:34 RDW Coeff of Tee 13.8 % (11.5-14.5) 03/02/20 05:34 Plt Count 257 K/uL (130-400) 03/02/20 05:34 MPV 9.5 fL (7.4-10.4) 03/02/20 05:34 Immature Gran % (Auto) Cancelled 12/25/19 14:15 Neut % (Auto) Cancelled 12/25/19 14:15 Lymph % (Auto) Cancelled 12/25/19 14:15 Kleberg % (Auto) Cancelled 12/25/19 14:15 Eos % (Auto) Cancelled 12/25/19 14:15 Baso % (Auto) Cancelled 12/25/19 14:15 Neut # (Auto) Cancelled 12/25/19 14:15 Lymph # (Auto) Cancelled 12/25/19 14:15 Kleberg # (Auto) Cancelled 12/25/19 14:15 Eos # (Auto) Cancelled 12/25/19 14:15 Baso # (Auto) Cancelled 12/25/19 14:15 Immature Gran # (Auto) Cancelled 12/25/19 14:15 Absolute Nucleated RBC Cancelled 12/25/19 14:15 Nucleated RBC % (auto) Cancelled 12/25/19 14:15 Neutrophils % (Manual) Cancelled 12/25/19 14:15 Band Neutrophils % Cancelled 12/25/19 14:15 Lymphocytes % (Manual) Cancelled 12/25/19 14:15 Prolymphocyte % Cancelled 12/25/19 14:15 Reactive Lymphs % (Man) Cancelled 12/25/19 14:15 Monocytes % (Manual) Cancelled 12/25/19 14:15 Eosinophils % (Manual) Cancelled 12/25/19 14:15 Basophils % (Manual) Cancelled 12/25/19 14:15 Metamyelocytes % (Man) Cancelled 12/25/19 14:15 Myelocytes % (Man) Cancelled 12/25/19 14:15 Promyelocytes % (Man) Cancelled 12/25/19 14:15 Blast Cells % (Manual) Cancelled 12/25/19 14:15 Plasma Cell % (Manual) Cancelled 12/25/19 14:15 Other Cells % Cancelled 12/25/19 14:15 Nucleated RBC % Cancelled 12/25/19 14:15 Neutrophils # (Manual) Cancelled 12/25/19 14:15 Band Neutrophils # Cancelled 12/25/19 14:15 Total Absolute Neuts Cancelled 12/25/19 14:15 Lymphocytes # (Manual) Cancelled 12/25/19 14:15 Prolymphocyte # Cancelled 12/25/19 14:15 Reactive Lymphs # Cancelled 12/25/19 14:15 Total Abs Lymphocytes Cancelled 12/25/19 14:15 Monocytes # (Manual) Cancelled 12/25/19 14:15 Eosinophils # (Manual) Cancelled 12/25/19 14:15 Basophils # (Manual) Cancelled 12/25/19 14:15 Metamyelocytes # (Man) Cancelled 12/25/19 14:15 Myelocytes # (Manual) Cancelled 12/25/19 14:15 Promyelocytes # (Man) Cancelled 12/25/19 14:15 Blast Cells # (Man) Cancelled 12/25/19 14:15 Plasma Cell # (Manual) Cancelled 12/25/19 14:15 Other Cells # Cancelled 12/25/19 14:15 Nucleated RBCs # (Man) Cancelled 12/25/19 14:15 Hypersegmented Neuts Cancelled 12/25/19 14:15 Hyposegmented Neuts Cancelled 12/25/19 14:15 Hypogranular Neuts Cancelled 12/25/19 14:15 Large Granular Lymphs Cancelled 12/25/19 14:15 # Lrg Granular Lymphs Cancelled 12/25/19 14:15 Hairy Cells Cancelled 12/25/19 14:15 Smudge Cells Cancelled 12/25/19 14:15 Toxic Granulation Cancelled 12/25/19 14:15 Toxic Vacuolation Cancelled 12/25/19 14:15 Dohle Bodies Cancelled 12/25/19 14:15 Rafael Rods Cancelled 12/25/19 14:15 Platelet Estimate Cancelled 12/25/19 14:15 Hypogranular Platelets Cancelled 12/25/19 14:15 Clumped Platelets Cancelled 12/25/19 14:15 Giant Platelets Cancelled 12/25/19 14:15 Platelet Satelliting Cancelled 12/25/19 14:15 RBC Morphology Cancelled 12/25/19 14:15 Polychromasia Cancelled 12/25/19 14:15 Hypochromasia Cancelled 12/25/19 14:15 Poikilocytosis Cancelled 12/25/19 14:15 Basophilic Stippling Cancelled 12/25/19 14:15 Anisocytosis Cancelled 12/25/19 14:15 Microcytosis Cancelled 12/25/19 14:15 Macrocytosis Cancelled 12/25/19 14:15 Spherocytes Cancelled 12/25/19 14:15 Pappenheimer Bodies Cancelled 12/25/19 14:15 Sickle Cells Cancelled 12/25/19 14:15 Target Cells Cancelled 12/25/19 14:15 Tear Drop Cells Cancelled 12/25/19 14:15 Ovalocytes Cancelled 12/25/19 14:15 Stomatocytes Cancelled 12/25/19 14:15 Deleon-Questa Bodies Cancelled 12/25/19 14:15 Echinocytes Cancelled 12/25/19 14:15 Acanthocytes (Spur) Cancelled 12/25/19 14:15 Rouleaux Cancelled 12/25/19 14:15 RBC Agglutinates Cancelled 12/25/19 14:15 Schistocytes Cancelled 12/25/19 14:15 RBC Morph Comment Cancelled 12/25/19 14:15 Sezary Cell Cancelled 12/25/19 14:15 PT Cancelled 12/25/19 14:15 INR Cancelled 12/25/19 14:15 APTT Cancelled 12/25/19 14:15 PTT Ratio Cancelled 12/25/19 14:15 Sodium 138 mmol/L (136-145) 03/02/20 05:34 Potassium 3.9 mmol/L (3.5-5.1) 03/02/20 05:34 Chloride 107 mmol/L (98-107) 03/02/20 05:34 Carbon Dioxide 24 mmol/L (21-32) 03/02/20 05:34 Anion Gap 7.0 (3-11) 03/02/20 05:34 BUN 22 mg/dl (7-18) H 03/02/20 05:34 Creatinine 1.18 mg/dl (0.6-1.2) 03/02/20 05:34 Est Cr Clr Drug Dosing 45.4 ml/min 03/02/20 05:34 Est GFR ( Amer) 53.4 03/02/20 05:34 Est GFR (Non-Af Amer) 46.0 03/02/20 05:34 BUN/Creatinine Ratio 18.9 (10-20) 03/02/20 05:34 Glucose 150 mg/dl (70-99) H 03/02/20 05:34 Estimat Average Glucose Cancelled 12/25/19 14:15 Hemoglobin A1c Cancelled 12/25/19 14:15 Calcium 8.8 mg/dl (8.5-10.1) 03/02/20 05:34 Albumin Cancelled 12/25/19 14:15 Urine Color Cancelled 12/25/19 14:15 Urine Appearance Cancelled 12/25/19 14:15 Urine pH Cancelled 12/25/19 14:15 Ur Specific [place] Cancelled 12/25/19 14:15 Urine Protein Cancelled 12/25/19 14:15 Urine Glucose (UA) Cancelled 12/25/19 14:15 Urine Ketones Cancelled 12/25/19 14:15 Urine Blood Cancelled 12/25/19 14:15 Urine Nitrite Cancelled 12/25/19 14:15 Urine Bilirubin Cancelled 12/25/19 14:15 Urine Urobilinogen Cancelled 12/25/19 14:15 Ur Leukocyte Esterase Cancelled 12/25/19 14:15 Urine WBC (Auto) Cancelled 12/25/19 14:15 Urine RBC (Auto) Cancelled 12/25/19 14:15 U Hyaline Cast (Auto) Cancelled 12/25/19 14:15 U Epithel Cells (Auto) Cancelled 12/25/19 14:15 Urine Bacteria (Auto) Cancelled 12/25/19 14:15 Ur Renal Epithelial Cell Cancelled 12/25/19 14:15 Urine Crystals Cancelled 12/25/19 14:15 Calcium Oxalate Crystal Cancelled 12/25/19 14:15 Uric Acid Crystals Cancelled 12/25/19 14:15 Triple Phos Crystals Cancelled 12/25/19 14:15 Other Crystals Cancelled 12/25/19 14:15 Amorphous Sediment Cancelled 12/25/19 14:15 Granular Casts Cancelled 12/25/19 14:15 Waxy Casts Cancelled 12/25/19 14:15 RBC Casts Cancelled 12/25/19 14:15 WBC Casts Cancelled 12/25/19 14:15 Other Casts Cancelled 12/25/19 14:15 Urine Mucus Cancelled 12/25/19 14:15 Urine Other Cancelled 12/25/19 14:15 Urine Trichomonas Cancelled 12/25/19 14:15 Urine Yeast Cancelled 12/25/19 14:15 Urine Sperm Cancelled 12/25/19 14:15 Ur Oval Fat Bodies Cancelled 12/25/19 14:15 Blood Type A Positive 03/01/20 11:19 Antibody Screen NEGATIVE 03/01/20 11:19 Diagnostic Findings LEFT KNEE 2 VIEWS History: Left total knee arthroplasty. Degenerative arthritis. Postop. FINDINGS: The patient is status post a left total knee arthroplasty. The hardware is intact. No fracture or dislocation. Surgical drains are in place. IMPRESSION: Left total knee arthroplasty. No evidence for hardware complication.
[2020-03-02] MEDS: CALCIUM 600MG + VIT D 400 IU TAB PO SCH (09:44)
[2020-03-02] MEDS: DOCUSATE SODIUM 100 MG CAP PO SCH (09:45)
[2020-03-02] MEDS: ASPIRIN 81 MG ECTAB PO SCH (09:46)
--- NOTE | 2020-03-02 10:15 | Discharge Summary ---
Date of Service date of discharge: March 02, 2020 date of admission: 03-01-20 Admission HPI Per Admitting Provider Ebonie is a 74 year old female who complains of left knee pain, presents for pre-op evaluation prior to a left total knee replacement by dr Bennett at [facility]. she complains of pain, decreased range of motion, and stiffness in the left knee. she states that the symptoms have been chronic and non-traumatic. Currently the patient states that the symptoms are moderate-severe. The pain is described as aching, sharp and throbbing. The symptoms occur continuously. The symptoms are aggravated by ascending stairs, daily activities, first steps while awake walking. Prior NSAIDs include Ibuprofen and Aleve, prior pain medications include Tylenol. she has been treated with previous visco injections in the past without much relief. She underwent Left knee arthroscopic partial medial meniscectomy, partial lateral meniscectomy chondroplasty, medial femoral condyle chondroplasty, lateral femoral condyle chondroplasty patellofemoral joint in May without any improvement. Principal Diagnosis left knee arthritis Discharge Exam Vital Signs Temp 36.6 C 03/02/20 07:50 Pulse 72 03/02/20 07:50 Resp 16 03/02/20 07:50 BP 120/54 L 03/02/20 07:50 Pulse Ox 91 03/02/20 07:50 Intake & Output 03/01/20 03/02/20 03/02/20 18:59 06:59 18:59 Intake Total 1650 / 4013.334 2363.334 / 4013.334 Output Total 55 / 475 420 / 475 250 / 250 Balance 1595 / 3538.334 1943.334 / 3538.334 -250 / -250 Weight 78 kg Intake: IV 900 / 2013.334 1113.334 / 2013.334 Lr 1,000 ml @ 15 mls/hr IV . 700 / 700 Q24H [facility] Rx#:[id number] Nss 1000ML 1,000 ml @ 100 mls/ 1113.334 / 1113.334 hr IV .Q10H [facility] Rx#:[id number] TRANEXAMIC ACID / 0.7% NACL 1, 200 / 200 000 mg In 100 ml @ 600 mls/hr IV TODAY@0600 [facility] Rx#:[id number] IV Perioperative 750 / 750 Oral 1250 / 1250 Output: Urine 200 / 200 250 / 250 Estimated Blood Loss 5 / 5 Drain Output 50 / 270 220 / 270 Left Knee Hemovac 50 / 270 220 / 270 Other: # Unmeasured Voids 1 Weight Measurement Method Standing Scale Constitutional WD/WN, vitals as above no acute distress Musculoskeletal left knee: NVDI, calf SNT, negative jovanny sign. DP palpable, able to wiggle toes/ankle movement without difficulty. dressing clean dry and intact. expected post-operative bruising noted. Discharge Data Allergies Allergy/AdvReac Type Severity Reaction Status Date / Time aspirin AdvReac Mild duodenal Verified 02/05/20 12:52 ulcer (see comments) Consultations 03/01/20 15:36 Consult Case Management - Discharge Planning Routine Procedures Performed Operation Date: 01/20/20 12:15 <No data on this case meets the specified criteria> Operation Date: 03/01/20 11:40 Actual Procedures p Left Total Knee Arthroplasty, Cemented(Left) - Rudy Bennett DO Ordered Studies 01/20/20 05:00 US - OR guided needle placemen Routine 03/01/20 05:00 US - OR guided needle placemen Routine Hospital Course (1) History of total left knee replacement: POD #1 s/p Left TKA pt/ot dvt proph with BASIM/SCD/ASA plan for d/c home with HHPT after PT today Total Time Total Time Spent Total Time Spent (In Minutes): 20 Total Time Includes: Examination of the Patient, Discharge Planning and Medication Reconciliation Discharge Plan Discharge Items Patient Disposition: Home - Home Health Services Reason For Visit: Osteoarthritis, Left Knee Discharge Diagnosis: left total knee replacement Condition on Discharge: Good Activity: Per Instructions section Lifting: Wait until after follow-up appointment Weightbearing Comment: WBAT with walker Non-emergency contact: Surgeon Call non-emergency contact if: you have any medication questions, your temperature is above 101, your wound has increased redness, your wound has increased drainage and your wound pain has increased Follow-up/Referrals: Jordyn Cao M.D. [Primary Care Provider] - Diet: Regular Addtl Attending Provider Instructions: ACTIVITY RECOMMENDATIONS: SELF CARE INSTRUCTIONS AFTER TOTAL KNEE REPLACEMENT A. You may need to continue a physical therapy program after discharge from the hospital. There are several options available to you. Your doctor will assist you in selecting the best one for you. 1. An out-patient facility 2 to 3 times a week for therapy or home therapy. 2. Continue working on all exercises taught to you in the hospital. Your goals should be to increase bending of your knee to 90 degrees and beyond and to fully straighten your knee. B. You may progress at your own pace from walking with a walker or crutches to a cane; then to no assistive devices. C. Make walking a part of your daily routine. Be up as much as comfortable with rest periods throughout the day. Rest with leg elevation is very important. Use the ice wrap frequently for the first 3-4 weeks. D. There are no restrictions on activities. You may ride in a car, shop, participate in deputy prosecuting attorney and all social activities. E. Wear the long elastic stockings (BASIM hose) 20 hours a day for 2 weeks after surgery. They can be removed several times a day for laundering and for a bath. F. You may shower, no tub baths until cleared by your doctor. SPECIAL CARE INSTRUCTIONS: VERY IMPORTANT TO READ AND REVIEW A. There are a few signs you need to watch for after you are home. Call [facility] if you notice any of the followin. Increased severe knee pain. Some pain is expected especially when you exercise. 2. Increased swelling in your leg or knee; pain or swelling of the calf muscle in either lower leg. 3. Any fluid drainage from the incision. 4. Shortness of breath or chest pain. B. Please call [facility] at if you have any concerns or questions about your operation or recovery. The doctor or his nurse will return your call promptly. C. You must take antibiotics before dental work, bladder, bowel or other surgery. Your doctor will provide you with a permanent care to carry describing this precaution. IMPORTANT: * REMEMBER TO TAKE ASPIRIN, 81 MG, TWICE DAILY FOR 4 WEEKS UNLESS OTHERWISE DIRECTED. THIS IS YOUR BLOOD THINNER. * HIGH RISK PATIENTS MAY BE PRESCRIBED A STRONGER BLOOD THINNER. THIS WILL BE PROVIDED AT DISCHARGE. * CALL IF INCREASED PAIN, REDNESS, DRAINAGE OR FEVER GREATER THAT 101. * WEAR BASIM HOSE 20 HOURS PER DAY FOR 2 WEEKS. * DERMABOND Prineo- This is a mesh tape dressing that is covered with glue. It should remain in place until the incision is properly healed, usually 10-14 days. This dressing is designed to naturally slough off. You may trim the excess mesh tape as it peels off. Incision may be briefly wet in a shower. Dry immediately by blotting with a clean, dry towel. Do not bath or swim until instructed by your doctor. Do not scratch, rub, or pick at the dressing. Do not apply any topical ointments or lotions until dressing is completely removed and/or instructed by your doctor. There may be a small piece of suture material at one end of your incision. Do not pull or trim this. If it is bothersome or catching on clothing, you may cover it with a band-aid. IF INCISION IS LEAKING THROUGH DRESSING, CALL THE OFFICE . FOLLOW UP VISIT: If appointment is not already scheduled: Please call [facility] to make a follow-up appointment for 2 weeks after your surgery at . Pending Studies at Discharge: No Stand-Alone Forms: My [employer], Smoking Cessation Medications and DC Order Prescriptions: New acetaminophen 500 mg Tablet 1,000 mg PO Q8 21 Days Qty: 126 RF: 0 aspirin 81 mg Tablet,Delayed Release (Dr/Ec) 81 mg PO BID 30 Days Qty: 60 RF: 0 oxycodone 5 mg Tablet 5 - 10 mg PO Q6H PRN (Reason: pain) Qty: 30 RF: 0 docusate sodium 100 mg Capsule 100 mg PO BID 10 Days Qty: 20 RF: 0 cefadroxil 500 mg capsule 500 mg PO BID 10 Days Qty: 20 RF: 0 Continued anastrozole 1 mg Tablet 1 mg PO QAM RF: 0 alendronate [Fosamax] 70 mg Tablet 70 mg PO WK RF: 0 calcium carbonate-vitamin D3 [Calcium + D] 600 mg(1,500mg) -200 unit Tablet 1 tab PO BID RF: 0 simvastatin 40 mg Tablet 40 mg PO HS RF: 0 celecoxib [Celebrex] 100 mg Capsule 100 mg PO BID RF: 0 esomeprazole magnesium [Nexium] 20 mg Capsule,Delayed Release(Dr/Ec) 20 mg PO QAM RF: 0 escitalopram oxalate 20 mg Tablet 20 mg PO HS RF: 0 biotin 5 mg Tablet 5 mg PO QAM RF: 0 cholecalciferol (vitamin D3) [Vitamin D3] 50 mcg (2,000 unit) Tablet 50 mcg PO QAM RF: 0 polyethylene glycol 3350 [Miralax] 17 gram/dose Powder 17 g PO Q OTHER DAY RF: 0 Discontinued aspirin 81 mg Tablet,Delayed Release (Dr/Ec) 81 mg PO QAM RF: 0 omega 9-[id number]-azu-fish oil [Fish Oil] 1,200 (144-216) mg Capsule 1 cap PO QAM RF: 0 Discharge Orders: Discharge Order (Routine); Ordered 03/02/20 Ordered By: Tai Jung Admission Data Admit Date/Time: 03/01/20 14:52 Attending Provider: Rudy Bennett Admit Provider: Rudy Bennett Primary Care Provider: Jordyn Cao
[2020-03-02 15:56] VITALS: BP 116/62; PULSE 73; TEMP 98.1; O2SAT 95
[2020-03-02] MEDS ORDERED: CELECOXIB 100 MG CAP PO SCH (21:00)
[2020-03-06] MEDS ORDERED: ALENDRONATE SODIUM 70 MG TAB PO SCH (07:30)
== END 2020-03-02 17:20 | disposition home health service (06) ==
LOC: ASU 09:02 → 3E 09:02 → EDSTATUS 11:30
DX: G47.30 Sleep apnea, unspecified; E78.5 Hyperlipidemia, unspecified; Z79.899 Other long term (current) drug therapy; K21.9 Gastro-esophageal reflux disease without esophagitis; Z79.82 Long term (current) use of aspirin; M17.12 Unilateral primary osteoarthritis, left knee